=== PATIENT | male | born 2000 | race Caucasian/White ===

== ENCOUNTER 2024-05-25 20:10 | Emergency (ER) | payer OTHER ==
[~2024-05-25] VITALS: Ht 167.6 cm; Wt 29.0 kg
[2024-05-25 20:17] VITALS: BP 140/80; PULSE 102; RESP 16; TEMP 98.2; O2SAT 95
[2024-05-25 22:35] LABS: BASOPHILS # (AUTO) 0.1 K/uL (0.00-0.22); BASOPHILS % (AUTO) 0.8 % (0.0-2.0); EOSINOPHILS % (AUTO) 0.5 % (0.0-4.0); HEMATOCRIT 48.6 % (36-52); HEMOGLOBIN 16.2 g/dL (12.0-18.0); LYMPHOCYTES # (AUTO) 2.6 K/uL (2.0-11.5); LYMPHOCYTES % (AUTO) 29.2 % (20.5-51.1); MEAN CORPUSCULAR HEMOGLOBIN 30 pg (27-31); MEAN CORPUSCULAR HGB CONC 33 g/dL (33-37); MEAN CORPUSCULAR VOLUME 88.7 fL (80-94); MONOCYTES # (AUTO) 0.8 K/uL (0.8-1.0); MONOCYTES % (AUTO) 9.3 % (1.7-9.3); NEUTROPHILS # (AUTO) 5.3 K/uL (1.8-7.7); NEUTROPHILS % (AUTO) 60.2 % (42.2-75.2); PLATELET COUNT (AUTO) 276 K/uL (140-450); RED BLOOD CELL COUNT(AUTO) 5.48 MIL/uL (4.20-6.10); RED CELL DISTRIBUTION WIDTH 14.6 % (11.6-13.7); WHITE BLOOD COUNT (AUTO) 8.9 K/uL (4.8-10.8)
[2024-05-25] MEDS: NACL 0.9% 1,000 ML IV ONE (22:37)
[2024-05-25 22:50] LABS: ANION GAP 20.4 (8-16); CARBON DIOXIDE 24.6 mmol/L (21-32); CREATININE 1.2 mg/dL (0.6-1.3)
[2024-05-25] MEDS: LORazepam 2 MG/ML VIAL IVP ONE (22:55)
[2024-05-25 23:52] VITALS: BP 130/80; PULSE 90; RESP 13; TEMP 98.6; O2SAT 97
== END 2024-05-25 23:53 | disposition home or self-care (01) ==
LOC: MED 20:10
DX: F10.129 Alcohol abuse with intoxication, unspecified (principal); Y90.8 Blood alcohol level of 240 mg/100 ml or more
CPT/HCPCS: 36415; 80048; 85025; 96361; 96374; 99283; G0482; J2060; J7030